=== PATIENT | female | born 1995 | race Caucasian/White ===

== ENCOUNTER 2016-09-21 08:28 | Emergency (ER) | payer MEDICAID ==
[~2016-09-21] VITALS: Ht 165.1 cm; Wt 68.0 kg
[2016-09-21 08:33] VITALS: BP_SYST 124
--- NOTE | 2016-09-21 08:37 | NUR ---
Patient to ER bed 3 to gown for evaluation. Side rails up. Report given to Nelson FLOREZ.
--- NOTE | 2016-09-21 08:38 | NUR ---
PT PRESENTS TO ED C/O MILD ABD PAIN W/NAUSEA AND DIARRHEA SINCE 299. PT HAS GREATER THAN 10 EPISODES OF EACH PER REPORT. PT TACHYCARDIAC AND AFEBRILE.PT DENIES OTHER MED HX. NO ACUTE DISTRESS NOTED.
--- NOTE | 2016-09-21 08:40 | NUR ---
ER at bedside examining patient.
--- NOTE | 2016-09-21 08:42 | NUR ---
# 20 gauge angiocath placed to LAC. Use of asceptic technique. Opsite placed over site. Blood return noted. Blood for lab drawn from site. Flushed with 10 cc of normal saline. No evidence of infiltration noted. Patient tolerated well. PT MEDICATED.
[2016-09-21] MEDS ORDERED: NACL 0.9% 1,000 ML IV ONE (08:49)
[2016-09-21] MEDS ORDERED: ONDANSETRON HCL 4 MG/2 ML VIAL IVP ONE (09:00)
[2016-09-21 09:19] LABS: BASOPHILS % (AUTO) 0.4 % (0.0-2.0); EOSINOPHILS % (AUTO) 0.1 % (0.0-4.0); HEMATOCRIT 47.2 % (36-48); HEMOGLOBIN 15.9 g/dL (12.0-16.0); LYMPHOCYTES # (AUTO) 0.6 K/uL (1.0-5.5); LYMPHOCYTES % (AUTO) 4.5 % (20.5-51.5); MEAN CORPUSCULAR HEMOGLOBIN 31 pg (27-31); MEAN CORPUSCULAR HGB CONC 34 % (32-36); MEAN CORPUSCULAR VOLUME 91 fL (79.0-98.0); MONOCYTES # (AUTO) 0.6 K/uL (0.0-1.0); MONOCYTES % (AUTO) 4.6 % (1.7-9.3); NEUTROPHILS # (AUTO) 11.2 K/uL (1.8-7.7); NEUTROPHILS % (AUTO) 90.4 % (40.0-70.0); PLATELET COUNT (AUTO) 222 K/uL (130-430); RED BLOOD CELL COUNT(AUTO) 5.19 MIL/uL (4.2-6.2); RED CELL DISTRIBUTION WIDTH 12.3 % (9.0-15.0); WHITE BLOOD COUNT (AUTO) 12.4 K/uL (4.8-10.8)
[2016-09-21 09:24] LABS: CALCIUM 9.2 mg/dL (8.4-11.0); CREATININE 0.69 mg/dL (0.55-1.30); POTASSIUM 3.9 mmol/L (3.5-5.1)
--- NOTE | 2016-09-21 09:25 | NUR ---
PT TOLERATED MEDICATION WELL. HR 90.CONTINUING TO MONITOR.
[2016-09-21 09:28] LABS: ALBUMIN 4.2 g/dL (3.4-4.8); TOTAL BILIRUBIN 1.4 mg/dL (0.0-1.0); TOTAL PROTEIN, SERUM 8.1 g/dL (6.4-8.3)
--- NOTE | 2016-09-21 10:00 | NUR ---
PT REPORTS PAINAND NAUSEA RESOLVED.
[2016-09-21 10:46] VITALS: BP_SYST 101
--- NOTE | 2016-09-21 10:46 | NUR ---
Patient given written and verbal discharge instructions and verbalizes understanding. ER MD discussed with patient the results and treatment provided. Patient in stable condition. ID arm band removed. IV catheter removed intact and dressing applied, no active bleeding. Rx of ZOFRAN given. Patient educated on pain management and to follow up with PMD. Pain Scale 0. Opportunity for questions provided and answered.
== END 2016-09-21 10:46 | disposition home or self-care (01) ==
LOC: SED 08:28
DX: E86.0 Dehydration (principal); K52.9 Noninfective gastroenteritis and colitis, unspecified
CPT/HCPCS: 36415; 80053; 81025; 83690; 85025; 96361; 96374; 99284; J2405; J7030